=== PATIENT | female | born 1995 | race Hispanic/Latino ===

== ENCOUNTER → 2017-04-22 | Outpatient (REF) | payer OTHER ==
[2017-04-22 16:05] LABS: PROLACTIN 10.2 NG/ML
== END ==
LOC: M LABDRAW1 15:24 → M LAB REF 15:24
PROVIDERS: ATTEND Nurse Practitioner Family
DX: E28.2 Polycystic ovarian syndrome (principal)

== ENCOUNTER 2017-09-13 12:53 | Emergency (ER) | payer OTHER ==
[2017-09-13 13:35] LABS: BASO % 0.2 % (0.0-1.0); EOS # 0.3 10^3/uL (0.0-0.50); EOS % 3.3 % (0.0-3.0); HEMOGLOBIN 12.5 g/dl (12.0-15.5); IMMATURE GRANULOCYTE % 0.2 % (0-3.0); LYMPH # 2.9 10^3/uL (1.5-6.5); LYMPH % 29.7 % (24.0-44.0); MEAN CORPUSCULAR HEMOGLOBIN 29.2 pg (27.0-33.0); MEAN CORPUSCULAR HGB CONC 32.9 g/dl (32.0-36.5); MEAN CORPUSCULAR VOLUME 88.8 fl (80.0-96.0); MONO # 0.5 10^3/uL (0.0-0.8); NEUTROPHILS % 61.6 % (36.0-66.0); PLATELET COUNT, AUTOMATED 447 10^3/uL (150-450); RED BLOOD COUNT 4.28 10^6/uL (4.00-5.40); RED CELL DISTRIBUTION WIDTH 14.4 % (11.5-14.5); WHITE BLOOD COUNT 9.8 10^3/uL (4.0-10.0)
[2017-09-13 13:58] LABS: HCG, SERUM QUANTITATIVE 21 MIU/ML
[2017-09-13 15:30] LABS: KETONE, URINE AUTO RFX NEGATIVE (NEGATIVE); LEUKOCYTE ESTERASE UR AUTO RFX NEGATIVE (NEGATIVE); NITRITE, URINE AUTO RFX NEGATIVE (NEGATIVE); RBC, URINE AUTO RFX 7 /HPF (0-3); SPECIFIC GRAVITY UR AUTO RFX 1.013 (1.002-1.035); SQUAM EPITHELIAL CELL UR AURFX 0 /HPF (0-6); WBC, URINE AUTO RFX 2 /HPF (0-3)
[2017-09-13 15:37] LABS: CHLAMYDIA DNA AMPLIFICATION NEGATIVE (NEGATIVE); GC DNA AMPLIFICATION NEGATIVE (NEGATIVE)
== END 2017-09-13 15:54 | disposition home or self-care (01) ==
LOC: M ED 12:53
DX: O20.0 Threatened abortion (principal); Z3A.01 Less than 8 weeks gestation of pregnancy
CPT/HCPCS: 76801

== ENCOUNTER → 2017-09-15 | Outpatient (CLI) | payer OTHER ==
[2017-09-15 16:02] LABS: HCG, SERUM QUANTITATIVE 3 MIU/ML
== END ==
LOC: M LAB 14:55
DX: O20.0 Threatened abortion (principal); Z3A.00 Weeks of gestation of pregnancy not specified
CPT/HCPCS: 84702

== ENCOUNTER → 2017-09-23 | Outpatient (CLI) | payer OTHER ==
[2017-09-23 15:40] LABS: HCG, SERUM QUANTITATIVE < 1.0 MIU/ML
== END ==
LOC: M LAB 14:48
DX: O03.9 Complete or unspecified spontaneous abortion without complication (principal)
CPT/HCPCS: 84702

== ENCOUNTER → 2017-11-12 | Outpatient (REF) | payer OTHER ==
[2017-11-12 13:55] LABS: PROLACTIN 18.3 NG/ML
[2017-11-12 14:09] LABS: FREE T4 1.05 NG/DL (0.76-1.46)
[2017-11-12 15:09] LABS: CONTROL LINE HCG INT CTR LINE PRESENT; HCG, SERUM QUALITATIVE POSITIVE (NEGATIVE)
== END ==
LOC: M LABDRAW1 12:04
DX: N91.2 Amenorrhea, unspecified (principal); E23.6 Other disorders of pituitary gland
CPT/HCPCS: 84146

== ENCOUNTER 2017-12-17 21:21 | Emergency (ER) | payer OTHER ==
[2017-12-17 22:26] LABS: BASO % 0.2 % (0.0-1.0); EOS # 0.2 10^3/uL (0.0-0.50); EOS % 1.8 % (0.0-3.0); HEMATOCRIT 36.7 % (36.0-47.0); HEMOGLOBIN 12.1 g/dl (12.0-15.5); IMMATURE GRANULOCYTE % 0.2 % (0-3.0); LYMPH # 3.6 10^3/uL (1.5-6.5); LYMPH % 28.7 % (24.0-44.0); MEAN CORPUSCULAR HEMOGLOBIN 29.7 pg (27.0-33.0); MEAN CORPUSCULAR VOLUME 90.2 fl (80.0-96.0); MONO # 0.7 10^3/uL (0.0-0.8); MONO % 5.3 % (0.0-5.0); NEUTROPHILS # 8.1 10^3/uL (1.8-7.7); NEUTROPHILS % 63.8 % (36.0-66.0); PLATELET COUNT, AUTOMATED 381 10^3/uL (150-450); RED BLOOD COUNT 4.07 10^6/uL (4.00-5.40); WHITE BLOOD COUNT 12.7 10^3/uL (4.0-10.0)
[2017-12-17 22:42] LABS: KETONE, URINE AUTO RFX 2+ mg/dL (NEGATIVE); LEUKOCYTE ESTERASE UR AUTO RFX NEGATIVE (NEGATIVE); MUCUS, URINE RFX SMALL (NEGATIVE); NITRITE, URINE AUTO RFX NEGATIVE (NEGATIVE); RBC, URINE AUTO RFX 2 /HPF (0-3); SQUAM EPITHELIAL CELL UR AURFX 1 /HPF (0-6); WBC, URINE AUTO RFX 3 /HPF (0-3)
[2017-12-17 23:09] LABS: HCG, SERUM QUANTITATIVE 75171 MIU/ML
== END 2017-12-18 01:06 | disposition home or self-care (01) ==
LOC: M ED 21:21
DX: O20.0 Threatened abortion (principal); Z3A.08 8 weeks gestation of pregnancy; Z79.899 Other long term (current) drug therapy
CPT/HCPCS: 76801

== ENCOUNTER 2018-07-07 22:56 | Outpatient (CLI) | payer OTHER ==
[~2018-07-07] VITALS: Ht 160 cm; Wt 78.3 kg
[~2018-07-07 22:56] MED LIST: PRENMIS3 PO
[2018-07-08 00:04] VITALS: BP 127/82
--- NOTE | 2018-07-08 08:36 | HPE ---
DATE OF ADMISSION: 07/07/2018 HISTORY: A 23-year-old 2, para 0, abortio 1, last menstrual period (LMP) of 10/15/2017, estimated date of confinement (EDC) 07/22/2018 at 37 at 6 weeks of gestation was at work at [employer] and had contractions. No vaginal loss or bleeding, came in for evaluation. RISK FACTORS: Polycystic kidney disease. She was on metformin. Has recurrent urinary tract infections (UTIs) last was Escherichia coli (E. coli). PAST HISTORY: October 2017 spontaneous at 7 weeks. LABORATORIES: A+, human immunodeficiency virus (HIV) negative, hepatitis negative, RPR negative, rubella immune. Varicella immune. Pap normal. Urine was positive for E-coli. Gonorrhea and chlamydia are negative. One-hour glucose 124. Group B Streptococcus (GBS) is pending. EXAMINATION: On examination no distress. Symphysis fundus height is 38. Category 1 strip. One cm posterior -3 station, 50% effaced. No vaginal bleeding or loss, temperature is 99.6, respirations are 16, pulse 81, blood pressure 127/82. Urine is 1020, pH 5 negative. The rest the examination is unremarkable. Normocephalic, atraumatic. Neck: Full range of motion. Pupils equal and reactive to light. Distal pulses symmetric. No evidence of deep vein thrombosis (DVT), pulmonary embolism (PE) or superficial phlebitis. Chest is clear bilaterally in the bases. No wheezes or rhonchi. Abdomen: Soft. Uterus appropriate symphysis fundus height. Four quadrant bowel sounds and pelvic exam as mentioned. No rashes, lesions or pruritus. No arthralgia, myalgia. No joint pain. No complaints of cough, wheezes, shortness of breath or dyspnea on exertion. She has no constipation or diarrhea. No evidence of bleeding. Neuro complete. FAMILY HISTORY: Family history is noncontributory. PAST MEDICAL HISTORY: She had polycystic kidney disease and was on metformin otherwise everything else was within normal limits. SUMMARY: We have a 37 and 6 weeks of gestation was working at [employer], dehydrated, had a category 1 strip with no change in her cervix. Planned on discharge with instructions. Has an appointment tomorrow with her centering group and psychology instructor. The patient was discharged undelivered.
== END 2018-07-08 | disposition home or self-care (01) ==
LOC: M LDO 22:56
PROVIDERS: ATTEND Obstetrics & Gynecology
DX: O62.2 Other uterine inertia (principal); O99.283 Endocrine, nutritional and metabolic diseases complicating pregnancy, third trimester; E86.0 Dehydration; Z3A.37 37 weeks gestation of pregnancy
CPT/HCPCS: 59025; G0378; G0463

== ENCOUNTER 2018-07-11 00:26 | Outpatient (CLI) | payer OTHER ==
[~2018-07-11] VITALS: Ht 160 cm; Wt 80.7 kg
[2018-07-11 00:45] VITALS: BP 157/94
[2018-07-11 00:46] VITALS: BP 145/86
== END 2018-07-11 01:15 | disposition home or self-care (01) ==
LOC: M LDO 00:26
PROVIDERS: ATTEND Obstetrics & Gynecology
DX: O47.1 False labor at or after 37 completed weeks of gestation (principal); Z3A.38 38 weeks gestation of pregnancy
CPT/HCPCS: 59025; G0378; G0463

== ENCOUNTER 2018-07-14 08:55 | Inpatient (IN) | payer OTHER ==
[~2018-07-14] VITALS: Ht 160 cm; Wt 80.6 kg
[2018-07-14] VITALS (35 sets, daily range): BP systolic 122–173; BP diastolic 69–102
[2018-07-14 10:43] LABS: HEMATOCRIT 31.7 % (36.0-47.0); MEAN CORPUSCULAR HEMOGLOBIN 27.8 pg (27.0-33.0); MEAN CORPUSCULAR HGB CONC 31.5 g/dl (32.0-36.5); MEAN CORPUSCULAR VOLUME 88.1 fl (80.0-96.0); PLATELET COUNT, AUTOMATED 333 10^3/uL (150-450); WHITE BLOOD COUNT 9.2 10^3/uL (4.0-10.0)
[2018-07-14 11:05] LABS: ALBUMIN 2.4 GM/DL (3.2-5.2); ALT/SGPT 12 U/L (12-78); BILIRUBIN,TOTAL 0.2 MG/DL (0.2-1.0); BLOOD UREA NITROGEN 8 MG/DL (7-18); CALCIUM LEVEL 8.4 MG/DL (8.5-10.1); CARBON DIOXIDE LEVEL 23 MEQ/L (21-32); CHLORIDE LEVEL 109 MEQ/L (98-107); CREATININE FOR GFR 0.54 MG/DL (0.55-1.30); GLOMERULAR FILTRATION RATE > 60.0 (>60); GLUCOSE, FASTING 97 MG/DL (70-100); POTASSIUM SERUM 4.3 MEQ/L (3.5-5.1); SODIUM LEVEL 139 MEQ/L (136-145); TOTAL PROTEIN 6.3 GM/DL (6.4-8.2)
[2018-07-14 11:13] LABS: TOTAL PROTEIN,RANDOM URINE 228.6 MG/DL (0.0-12.0)
[2018-07-14] MEDS ORDERED: LACTATED RINGER'S 1000 ML IV STA (11:40)
[2018-07-14] MEDS ORDERED: miSOPROStol 50 MCG 1/2 TAB (S0191) PO SCH (12:00)
--- NOTE | 2018-07-14 12:37 | HPEPDOC ---
Obstetrical History & Physical General Date of Admission Jul 14, 2018 at 11:37 History of Present Illness Niya is a 23yo with SIUP at 38w6d by lmp c/w 7wk u/s who presented to L&D from clinic today where she was found to have elevated bp's for the first time at routine visit. She denies CROUCH/vision changes/RUQ pain. No complaints. No LOF/vaginal bleeding/painful ctx. She feels movement. Labs were drawn in triage which showed normal creatinine/LFTs/plt (anemic H/H 10/31.7) and urine protein:creatinine elevated at 1.02. Her bp's are consistently mild range. This meets criteria for pre-eclampsia withOUT severe features so we are proceeding with IOL since she is 38w6d. Chief Complaint: Pre-eclamsia Information Provided By: Patient Care Care: Good Care Dating Final EDC: Jul 22, 2018 Final EDC by: LMP, 1st trimester (US) Antepartum Course Diagnos(e)s pre-eclampsia withOUT severe features, UTI first trimester treated with macrobid, heartburn treated with zantac Height (inches): 63 Pre- weight (lbs.): 150 Admission Weight (lbs.): 174 Change in Weight (lbs.): 24 Past Medical History Past Obstetrical History : Past Obstetrical History: Primgravida (history of 1 early October 2017) LAB AID History: No pertinent history Past Medical History Medical History PCOS, overweight (starting BMI 27) Surgical History: Denies/None Family History Significant Family History: No pertinent family hx Social History Marital Status: Family situation: Spouse/partner home Psychosocial History: No pertinent psych hx * Smoker: non-smoker Alcohol: Denies Drugs: denies Imunizations Tdap status: current Influenza Status: current Allergies Coded Allergies: No Known Allergies (Unverified , 09/13/17) Medications Scheduled Multivitamins/ ( Multivitamin + D 28-0.8 & 200 mg) 1 Mis Mis, 1 TAB PO DAILY Physical Examination Physical Examination GENERAL: Alert and oriented times three. ABDOMEN: Gravid and non-tender to touch. FETUS: Is vertex (VTX) by sterile vaginal examination (SVE) EXTREMITIES: No edema. Vital Signs/I&O Vital Signs Date Time Temp Pulse Resp B/P (MAP) Pulse Ox O2 Delivery O2 Flow Rate FiO2 07/14/18 11:12 73 18 143/94 (110) 07/14/18 09:47 99.2 Laboratory Data 24H LABS Laboratory Tests 2 07/14/18 10:19: Nucleated Red Blood Cells % (auto) 0.0, Anion Gap 7L, Glomerular Filtration Rate > 60.0, Blood Urea Nitrogen 8, Creatinine 0.54L, Sodium Level 139, Potassium Level 4.3, Chloride Level 109H, Carbon Dioxide Level 23, Calcium Level 8.4L, Aspartate Amino Transf (AST/SGOT) 16, Alanine Aminotransferase (ALT/SGPT) 12, Alkaline Phosphatase 176H, Total Bilirubin 0.2, Total Protein 6.3L, Albumin 2.4L, Albumin/Globulin Ratio 0.62L 07/14/18 10:26: Urine Random Creatinine 224.0, Urine Random Total Protein 228.6H CBC/BMP Laboratory Tests 07/14/18 10:19 Red Blood Count 3.60 L, Mean Corpuscular Volume 88.1, Mean Corpuscular Hemoglobin 27.8, Mean Corpuscular Hemoglobin Concent 31.5 L, Red Cell Distribution Width 14.2, Calcium Level 8.4 L, Aspartate Amino Transf (AST/SGOT) 16, Alanine Aminotransferase (ALT/SGPT) 12, Alkaline Phosphatase 176 H, Total Bilirubin 0.2, Total Protein 6.3 L, Albumin 2.4 L Pertinent Laboratoy Data Blood Type: A+ RBC Antibody Screen: Negative HIV: Negative Hepatitis B: Negative Hepatitis C: Unknown Rapid Plasma Reagin: Nonreactive Rubella: Immune Varicella: Immune Chlamydia/Gonorrhea: Negative Group B Streptococcus: Negative Cystic Fibrosis: Negative Glucose Tolerance Test: 124 Anatomy Ultrasound Ultrasound Date: Jan 13, 2018 Placenta Location: Posterior Normal Anatomy: Yes (EIF) Placenta Previa: No Steroid Therapy Steroid Therapy: No Vaginal Examination Dilation: 3 cm Effacement: 70% Station: -2 Cervical Consistency: Soft Cervical Position: Anterior Presentation: Cephalic presentation Assessment Variability: Moderate Accelerations: Positive Decelerations: None Tocometer Contractions: Yes Frequency: irregular, greater than 9 min/apart Duration: greater than 60 seconds Strength: palpated as mild Assessment/Plan Assessment Niya is a 23yo with SIUP at 38w6d by lmp c/w 7wk u/s admitted to L&D f or IOL for new diagnosis of pre-eclampsia withOUT severe features based on mild range bp's with protein:creatinine 1.02. No other sx of pre-E, LFTs/creatinine/plt wnl. Anemia noted on H/H. PMhx significant for overweight starting BMI 27, course significant for GERD treated with zantac and a UTI treated with macrobid. GBS negative. Cat I FHRT, occasional ctx. SCE /- 2, soft. Cephalic by SCE. Plan Admit and orient. Splitting Machine Feeder and consent. Diet: regular diet lunch then clear liquids Group B Streptococcus (GBS) negative Labs and intravenous (IV) per unit protocol. Counseled on cytotec, pitocin and induction of labor (IOL). Will start with 50mcg PO cytotec x1 then likely proceed to pitocin. Lactated Ringers (LR): Bolus 500 mL, then at 125 mL/hr. Anticipate normal spontaneous delivery () Candidate for epidural if desired MD Froilan Emmanuel Katrina D MD Jul 14, 2018 11:52
[2018-07-14] MEDS: OXYTOCIN DRIP 30 UNITS in APPROPRIATE DILUENT 1 EA IV SCH ×2 (17:16→18:03)
[2018-07-14] MEDS: LR 1,000 ML IV SCH ×2 (18:43→23:22)
[2018-07-14] MEDS ORDERED: FENTANYL 2MCG/ML ROPIVACAINE 0.2% IN 0.9% NACL 100ML IVBAG As Ordered ONE (21:31)
[2018-07-14 21:50] LABS: HEMATOCRIT 33.3 % (36.0-47.0); HEMOGLOBIN 10.5 g/dl (12.0-15.5); MEAN CORPUSCULAR HEMOGLOBIN 27.6 pg (27.0-33.0); MEAN CORPUSCULAR HGB CONC 31.5 g/dl (32.0-36.5); MEAN CORPUSCULAR VOLUME 87.4 fl (80.0-96.0); PLATELET COUNT, AUTOMATED 359 10^3/uL (150-450); RED BLOOD COUNT 3.81 10^6/uL (4.00-5.40); WHITE BLOOD COUNT 11.7 10^3/uL (4.0-10.0)
[2018-07-14] MEDS ORDERED: ePHEDrine SULFATE 25 MG/5 ML(5MG/ML) SYRINGE IV PRN (22:15)
[2018-07-14] MEDS ORDERED: diphenhydrAMINE INJ 50MG/ML VIAL (J1200) IV PRN (22:15)
[2018-07-14] MEDS ORDERED: LACTATED RINGER'S 1000 ML IV PRN (22:15)
[2018-07-14] MEDS ORDERED: REFRIGERATOR IV KEYS XX PRN (22:15)
[2018-07-14] MEDS ORDERED: EPIDURAL/PCA KEYS XX PRN (22:15)
[2018-07-14] MEDS ORDERED: NALOXONE INJ 0.4 MG/1 ML VIAL (J2310) IV PRN (22:15)
[2018-07-14] MEDS ORDERED: EPIDURAL COMMENT XX SCH (22:15)
[2018-07-14] MEDS ORDERED: FENTANYL/ROPIVACAINE/NACL BAG 100 ML EPIDURAL SCH (22:15)
[2018-07-14] MEDS ORDERED: ONDANSETRON 4MG/2ML VIAL (J2405) IV PRN (22:15)
[2018-07-15] VITALS (12 sets, daily range): BP systolic 120–149; BP diastolic 69–85
--- NOTE | 2018-07-15 01:32 | IPNPDOC ---
Text Note Date of Service The patient was seen on 07/15/18. NOTE Intrapartum Note Pt overall comfortable with epidural, feeling pressure with ctx. Pitocin recently turned down from 16mu to 10mu. Vitals wnl, afebrile Cat II FHRT with occasional variable decels, mod pauline, +accels [place]: ctx q2min SCE C/C/0, pushes well with test push Continue pushing Anticipate soon Safe to proceed Dr. Stephanie Mcgovern MD VS,Dakota, I+O VS, Dakota I+O Laboratory Tests 07/14/18 10:19 Red Blood Count 3.60 L, Mean Corpuscular Volume 88.1, Mean Corpuscular Hemoglobin 27.8, Mean Corpuscular Hemoglobin Concent 31.5 L, Red Cell Distribution Width 14.2, Calcium Level 8.4 L, Aspartate Amino Transf (AST/SGOT) 16, Alanine Aminotransferase (ALT/SGPT) 12, Alkaline Phosphatase 176 H, Total Bilirubin 0.2, Total Protein 6.3 L, Albumin 2.4 L 07/14/18 21:33 Red Blood Count 3.81 L, Mean Corpuscular Volume 87.4, Mean Corpuscular Hemoglobin 27.6, Mean Corpuscular Hemoglobin Concent 31.5 L, Red Cell Distribution Width 14.2 Vital Signs Date Time Temp Pulse Resp B/P (MAP) Pulse Ox O2 Delivery O2 Flow Rate FiO2 07/14/18 22:36 71 18 138/85 (102) 07/14/18 20:00 98.7 I&O- Last 24 Hours up to 6 AM 07/15/18 06:00 Intake Total 1000 ml Output Total 150 ml Balance 850 ml Stephanie Mcgovern MD Jul 15, 2018 01:32
[2018-07-15] MEDS ORDERED: OXYTOCIN DRIP 30 UNITS in APPROPRIATE DILUENT 1 EA IV SCH (02:19)
--- NOTE | 2018-07-15 02:26 | DNPDOC ---
[facility] Delivery Note Delivery Note DATE OF DELIVERY: 07/15/18 PREDELIVERY DIAGNOSIS: 39w0d IOL for pre-eclampsia withOUT severe features POST DELIVERY DIAGNOSIS: Delivered. PROCEDURE: Spontaneous vaginal delivery METAL BED ASSEMBLER: Dr. Stephanie Mcgovern MD ANESTHESIA: epidural ESTIMATED BLOOD LOSS: 300 mL. FINDINGS: male infant (weight pending at time of this note, see chart), Score 9/9 DELIVERY SUMMARY: Niya is a 23yo [id number] s/p uncomplicated at 39w0d after undergoing IOL for pre-eclampsia withOUT severe features, delivering on 07/15/18 at 01:54. She received oral cytotec and then IV pitocin. Received an epidural. Unknown time of AROM- hair palpated at C/C/0 but no fluid ever noticed. She pushed approximately 30 min. head delivered OA, restituted LAITH, left compound hand noted. Right anterior shoulder delivered followed by posterior shoulder and corpus. vigorous with spontaneous cry, placed on maternal abdomen, apgars 9/9. After 3 min, cord clamped x2 and cut by FOB. With uterine massage and traction on the cord, placenta delivered spontaneously and intact with 3 vessel centrally inserted cord. Bimanual uterine massage performed, IV pitocin given per protocol. Uterus then firm at u-2cm. Inspection of perineum and vagina revealed a 1mll inside the vagina and bilateral labial lacerations, all reapproximated in routine fashion with 3-0 vicryl with total hemostasis noted. Mom and were doing well when I left the room. MD Froilan Emmanuel Katrina D MD Jul 15, 2018 02:26
[2018-07-15] MEDS ORDERED: ACETAMINOPHEN 500 MG TAB PO PRN (02:30)
[2018-07-15] MEDS ORDERED: DOCUSATE SODIUM 100 MG CAP PO PRN (02:30)
[2018-07-15] MEDS ORDERED: RHOGAM 300 MCG (1500 IU) INJ (J2790) IM SCH (02:30)
[2018-07-15] MEDS ORDERED: MEASLES,MUMPS,RUBELLA VACCINE INJ (MMR-II) (90707) SC SCH (02:30)
[2018-07-15] MEDS: IBUPROFEN 800 MG TAB PO PRN ×2 (04:57→13:43)
[2018-07-15] MEDS: PRENATAL VITAMINS CHEWABLE TABLET PO SCH (08:49)
--- NOTE | 2018-07-15 12:25 | IPN ---
DATE: 07/15/2018 The patient requested circumcision of her male . After discussing risks and benefits of circumcision, the medical and nonmedical indications, penile block and aftercare, expressed understanding of penile block, aftercare and bleeding. Signed the consent form. 20-minute discussion. All questions were answered. We await clearance by the acquisition advisor.
[2018-07-15] MEDS: DIBUCAINE 1% OINTMENT 30GM TOP PRN (13:43)
--- NOTE | 2018-07-16 05:55 | IPNPDOC ---
Text Note Date of Service The patient was seen on 07/16/18. NOTE PPD1 States feeling well, pain controlled with prescribed meds. Baby bonding and feeding well. No heavy VB. Lochia slowing. Ambulatory. Tolerating PO without issues. Voiding spont. No CP/LP/SOB. VSSAF other than Hr 127 at 0600 NAD A&O LE no C/C/E Ut at U-2, firm a/p: Doing well. Cont routine care. D/C tomorrow likely. Rpt Vitals in 1 hour. Sessions Dakota LANZA, I+O VSDakota I+O Vital Signs Date Time Temp Pulse Resp B/P (MAP) Pulse Ox O2 Delivery O2 Flow Rate FiO2 07/15/18 18:00 97.9 87 18 133/74 (93) SESSIONS,ELMER Monique MD Jul 16, 2018 05:55
[2018-07-16 06:40] VITALS: BP 131/84
[2018-07-16] MEDS: PRENATAL VITAMINS CHEWABLE TABLET PO SCH (08:40)
[2018-07-16] MEDS: IBUPROFEN 800 MG TAB PO PRN ×2 (09:47→20:15)
[2018-07-16] MEDS: LR 1,000 ML IV SCH ×2 (15:51→15:52)
[2018-07-16 18:08] VITALS: BP 128/69
[2018-07-16] MEDS: DIBUCAINE 1% OINTMENT 30GM TOP PRN (20:15)
[2018-07-17 06:00] VITALS: BP_SYST 110; BP_SYST 130; BP_DIAS 75; BP_DIAS 92
[2018-07-17] MEDS ORDERED: IBUP-1114 PO (08:36)
[2018-07-17] MEDS ORDERED: MAPA500T2 PO (08:36)
[2018-07-17] MEDS ORDERED: NUPE1OIN2 TOP (08:37)
[2018-07-17] MEDS ORDERED: COLA100C5 PO (08:37)
[2018-07-17] MEDS: PRENATAL VITAMINS CHEWABLE TABLET PO SCH (09:00)
--- NOTE | 2018-07-17 15:38 | DSES ---
DATE OF ADMISSION: 07/14/2018 DATE OF DISCHARGE: 07/17/2018 A 23-year-old 2, now para 1 admitted for elevated blood pressure and induction of labor. Her protein creatinine ratio is 1.02. She had a spontaneous vaginal delivery with epidural in place of a live male infant, 7 pounds, 4 ounces, scores of 9 and 9 at one and five minutes respectively. Her admitting hemoglobin was 10.0, hematocrit 31.7, platelets 142. Discharge day one hemoglobin 10.5, hematocrit 33.3 and platelets were 142. DISCHARGE VITAL SIGNS: Her blood pressure 130/75, respirations 20, pulse 83 and temperature is 96.8. We discussed phlebitis, cystitis, mastitis, endometritis and cellulitis, diet, exercise, pain management, perineal, breast and wound care. Medications were dispensed at discharge. The rest the examination is unremarkable. Normocephalic, atraumatic. Neck: Full range of motion. Pupils equal and reactive to light. Distal pulses are symmetric. No evidence of deep vein thrombosis (DVT), pulmonary embolism (PE) or superficial phlebitis. Lungs are clear bilaterally to bases. No wheezes or rhonchi. No costovertebral angle (CVA) tenderness. Uterus 2 below. Lochia is moderate. Four quadrant bowel sounds are noted. Perineum is intact. No rashes, lesions or pruritus. No arthralgia or myalgia. No complaint joint pain. No complaint of cough, wheezes, shortness of breath or dyspnea on exertion. No bleeding. Neurologically complete. No incontinence, urgency or frequency. No nausea, vomiting, diarrhea or constipation. No diabetic issues. She does not smoke, drink or abuse drugs. She is . No domestic violence and has a good support system. SUMMARY: We have a term gestation, early, delivered by induction of labor because of elevated blood pressures, live male infant.
== END 2018-07-17 11:55 | disposition home or self-care (01) | DRG 806 ==
LOC: M LDO 08:55 → M LDI 11:37 → M OBS 07-15 04:31
PROVIDERS: ADMIT Obstetrics & Gynecology; ATTEND Obstetrics & Gynecology
PROC: 3E033VJ Introduction of Other Hormone into Peripheral Vein, Percutaneous Approach (ICD-10-PCS; 2018-07-14)
PROC: 10E0XZZ Delivery of Products of Conception, External Approach (ICD-10-PCS; principal; 2018-07-15)
PROC: 0HQ9XZZ Repair Perineum Skin, External Approach (ICD-10-PCS; 2018-07-15)
PROC: 10907ZC Drainage of Amniotic Fluid, Therapeutic from Products of Conception, Via Natural or Artificial Opening (ICD-10-PCS; 2018-07-15)
DX: O14.94 Unspecified pre-eclampsia, complicating childbirth (principal); N39.0 Urinary tract infection, site not specified; Z37.0 Single live birth; Z3A.38 38 weeks gestation of pregnancy; K21.9 Gastro-esophageal reflux disease without esophagitis; O99.62 Diseases of the digestive system complicating childbirth; O23.43 Unspecified infection of urinary tract in pregnancy, third trimester; O32.6XX0 Maternal care for compound presentation, not applicable or unspecified; O70.0 First degree perineal laceration during delivery

== ENCOUNTER 2020-10-22 16:42 | Emergency (ER) | payer OTHER ==
[~2020-10-22] VITALS: Ht 160 cm; Wt 79.1 kg
[~2020-10-22 16:42] MED LIST changes: +COLA100C5 PO; +IBUP-1114 PO; +MAPA500T2 PO; +NUPE1OIN2 TOP
[2020-10-22] MEDS ORDERED: CETI10CH PO (17:03)
[2020-10-22] MEDS ORDERED: FLUT44IN INH (17:03)
[2020-10-22] MEDS ORDERED: ASPI81CH33 PO (17:03)
[2020-10-22 19:59] LABS: BASO % 0.3 % (0.0-1.0); EOS # 0.7 10^3/uL (0.0-0.5); EOS % 5.9 % (0.0-3.0); HEMATOCRIT 35.6 % (36.0-47.0); HEMOGLOBIN 11.8 g/dl (12.0-15.5); LYMPH % 24.7 % (24.0-44.0); MEAN CORPUSCULAR HEMOGLOBIN 29.9 pg (27.0-33.0); MEAN CORPUSCULAR HGB CONC 33.1 g/dl (32.0-36.5); MEAN CORPUSCULAR VOLUME 90.1 fl (80.0-96.0); MONO # 0.6 10^3/uL (0.0-0.8); MONO % 5.3 % (2.0-8.0); NEUTROPHILS # 7.6 10^3/uL (1.5-8.5); NEUTROPHILS % 63.5 % (36.0-66.0); PLATELET COUNT, AUTOMATED 360 10^3/uL (150-450); RED BLOOD COUNT 3.95 10^6/uL (4.00-5.40)
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
[2020-10-22 20:35] VITALS: BP 120/74
== END 2020-10-22 20:38 | disposition home or self-care (01) ==
LOC: M ED 16:42
DX: O9A.213 Injury, poisoning and certain other consequences of external causes complicating pregnancy, third trimester (principal); S30.1XXA Contusion of abdominal wall, initial encounter; V49.40XA Driver injured in collision with unspecified motor vehicles in traffic accident, initial encounter; Y92.9 Unspecified place or not applicable; Y93.9 Activity, unspecified; Y99.9 Unspecified external cause status; Z3A.15 15 weeks gestation of pregnancy

== ENCOUNTER 2021-02-18 00:08 | Outpatient (CLI) | payer OTHER ==
[~2021-02-18] VITALS: Ht 160 cm; Wt 85.1 kg
[~2021-02-18 00:08] MED LIST changes: +ASPI81CH33 PO; +CETI10CH PO; +FLUT44IN INH
[2021-02-18 00:38] LABS: HEMOGLOBIN 11.3 g/dl (12.0-15.5); MEAN CORPUSCULAR HEMOGLOBIN 30.3 pg (27.0-33.0); MEAN CORPUSCULAR HGB CONC 33.2 g/dl (32.0-36.5); MEAN CORPUSCULAR VOLUME 91.2 fl (80.0-96.0); PLATELET COUNT, AUTOMATED 352 10^3/uL (150-450); RED BLOOD COUNT 3.73 10^6/uL (4.00-5.40); WHITE BLOOD COUNT 10.7 10^3/uL (4.0-10.0)
[2021-02-18 00:47] VITALS: BP 125/74
[2021-02-18 01:06] LABS: ALT/SGPT 14 U/L (12-78); BILIRUBIN,TOTAL 0.2 MG/DL (0.2-1.0); CREATININE FOR GFR 0.55 MG/DL (0.55-1.30); GLOMERULAR FILTRATION RATE > 60.0 (>60); LDH LACTATE DEHYDROGENASE 132 U/L (84-246)
[2021-02-18 01:32] LABS: TOTAL PROTEIN,RANDOM URINE 12.1 MG/DL (0.0-12.0)
--- NOTE | 2021-02-18 01:37 | IPNPDOC ---
Text Note Date of Service The patient was seen on 02/18/21. NOTE Chief Complaint: Ms. Izquierdo is a 25 year old G 2 P 1 at 31+4 weeks gestation presenting to L&D triage for complaints of elevated blood pressure with vision changes. Patient presents: alone HPI: Reports she has had blurred vision today and checked her blood pressure at home with a wrist cuff and was 158/97 at 2300. Reports she felt dizzy earlier on Friday and had a headache that went away with Tylenol. Also reporting swelling to hands and feet, but improved with rest. Does report sharp pain under left breast that hurts worse with touching, like muscles tearing on skin. Denies any leaking of fluid, vaginal bleeding. Reporting good movement. Denies any contractions. Denies any headaches, nausea, vomiting, RUQ pain. Denies any dysuria, vaginal discharge, vaginal itching/burning. Has hx of pre-e in previous and taking ASA 81mg daily. Objective: VS: BP 125/74, P96 & BP 117/72, P94 General: Alert. Well-appearing, in no acute distress PSYCH: Well groomed. Appropriate affect, normal mood. Conversed easily. Neuro: Oriented to time, place, and person. Patellar Deep tendon reflexes normal. Negative clonus. RESP: Lungs clear to auscultation bilaterally without wheezes, rales or rhonchi. Unlabored breathing. Thoracic expansion symmetric. No retractions. CV: Normal RRR, no murmur, c/w normal . No edema to bilateral upper and lower extremities. ABD: Soft, non-tender. BS normal x4 quad. No swelling, guarding, mass or lumps noted on palpation. MSK: Legs without edema bilaterally. Normal mvmt all extremities. Steady gait. Kirti from a seated position without assistance. Obstetrical: FHR: 135 with moderate variability. Multiple accelerations noted, no decelerations. No contractions noted. VTX by Kati Hernandez present for exam: L&D RN Labs: Item Value Date Time Urine Random Creatinine 55.0 MG/DL 02/18/21 0056 Urine Random Total Protein 12.1 MG/DL H 02/18/21 0056 Creatinine 0.55 MG/DL 02/18/21 0029 Glomerular Filtration Rate > 60.0 02/18/21 0029 Uric Acid 3.0 MG/DL 02/18/2128 Total Bilirubin 0.2 MG/DL 02/18/2128 Aspartate Amino Transf (AST/SGOT) 11 U/L 02/18/2128 Alanine Aminotransferase (ALT/SGPT) 14 U/L 02/18/2128 Lactate Dehydrogenase 132 U/L 02/18/2128 White Blood Count 10.7 10^3/uL H 02/18/2128 Red Blood Count 3.73 10^6/uL L 02/18/2128 Hemoglobin 11.3 g/dl L 02/18/2128 Hematocrit 34.0 % L 02/18/2128 Mean Corpuscular Hemoglobin Concent 33.2 g/dl 02/18/2128 Red Cell Distribution Width 13.2 % 02/18/2128 Platelet Count 352 10^3/uL 02/18/2128 Nucleated Red Blood Cells % (auto) 0.0 % 02/18/2128 Mean Corpuscular Hemoglobin 30.3 pg 02/18/2128 Mean Corpuscular Volume 91.2 fl 02/18/2128 A/P 25yo at 31+4 wks gestation evaluated in L&D triage for complaints of elevated BP at home. VSS and normal Benign physical exam Reactive NST, reassuring Labs: Normal with P:C 0.22 Plan: Discussed sometimes wrist cuffs are not as accurate, however we will check her blood pressure again at her appointment on Friday. Educated on routine OB return precautions and warning signs. Follow up on [facility] as previously scheduled. VS,Dakota, I+O VS, [place], I+O Laboratory Tests 02/18/21 00:29 RICHARD PAEZ CNM Feb 18, 2021 00:49
== END 2021-02-18 01:45 | disposition home or self-care (01) ==
LOC: M LDO 00:08
PROVIDERS: ATTEND Advanced Practice Midwife
DX: Z03.79 Encounter for other suspected maternal and fetal conditions ruled out (principal); Z3A.31 31 weeks gestation of pregnancy; Z87.59 Personal history of other complications of pregnancy, childbirth and the puerperium
CPT/HCPCS: 36415; 59025; 82247; 82565; 82570; 83615; 84156; 84450; 84460; 84550; 85027; G0378; G0463

== ENCOUNTER 2021-03-11 21:51 | Outpatient (CLI) | payer OTHER ==
[~2021-03-11] VITALS: Ht 160 cm; Wt 85.5 kg
[2021-03-11 22:12] VITALS: BP 129/80
--- NOTE | 2021-03-11 23:08 | IPNPDOC ---
Text Note Date of Service The patient was seen on 03/11/21. NOTE Chief Complaint: Ms. Izquierdo is a 25 year old G 2 P 1 at 34+4 weeks gestation presenting to L&D triage for complaints of leaking fluid. Patient presents: alone HPI: Reports she felt leaking fluid yesterday, but didn't think much about it. [place] fluid again at 2100 this evening with pantiliner becoming wet and having to change it. No odor or color. No recent intercourse. Reports irregular uterine cramping. Some nausea today. Denies vaginal bleeding. Reporting good movement. Denies any headaches, vomiting, RUQ pain. Denies any dysuria, vaginal discharge, vaginal itching/burning. Objective: VS: BP 129/80, HR 98, Temp 97.6 General: Alert. Well-appearing, in no acute distress PSYCH: Well groomed. Appropriate affect, normal mood. Conversed easily. Neuro: Oriented to time, place, and person. RESP: Unlabored breathing. CV: No edema to bilateral upper and lower extremities. No cyanosis ABD: Soft, non-tender. Obstetrical: FHR: 135 with moderate variblity. Accelerations present. No decelerations. 2 contractions noted while in triage. Pelvic exam: External Genitalia showed no abnormalities, without lesions; normal vulva with NO vulvar atrophy, hypertrophy, stricture, adhesions, ulcers, lesions, masses, or vulvitis. Vagina: Normal white, nonadherent vaginal discharge was observed. Normal mucosa with good rugae. No ulcerations, masses, lesions or lacerations. No unusual odors. Cervix: Normal cervical mucoid discharge noted, no lesions, no CMT on speculum insertion. Non-friable. Cervical os visually closed. No pooling of fluid. Negative fluid on valsalva. Uterus: Not tender. Appropriate size for gestational age. Deaf Interpreter present for exam: Mr. Marin, RN Limited Trans-Abdominal Ultrasound Performed Today: Presentation: BREECH Placenta location: right anterior Movement Present Heart Rate Present Amniotic fluid: MVP 5.6cm Labs: negative nitrazine on vaginal fluid and negative for ferning. A/P 25yo at 34+4 wks gestation evaluated in L&D triage for complaints of leaking fluid. VSS and normal Benign physical exam. Negative for fern and nitrazine. Cervix visually closed. Reactive NST, reassuring TAUS showing: BREECH presentation with normal fluid. Not ruptured at this tie. Plan: Educated on routine OB return precautions and warning signs. Reviewed continuing to monitor for fluid loss. Follow up on [facility] clinic as previously scheduled. Recommended f/u US in clinic at her next appointment to re-assess presentation. VS,Fishbone, I+O VS, [place], I+O Vital Signs Date Time Temp Pulse Resp B/P (MAP) Pulse Ox O2 Delivery O2 Flow Rate FiO2 03/11/21 22:12 97.6 98 18 129/80 (96) RICHARD PAEZ CNM Mar 11, 2021 23:08
== END 2021-03-11 23:04 | disposition home or self-care (01) ==
LOC: M LDO 21:51
PROVIDERS: ATTEND Advanced Practice Midwife
DX: O26.893 Other specified pregnancy related conditions, third trimester (principal); O32.1XX0 Maternal care for breech presentation, not applicable or unspecified; Z3A.34 34 weeks gestation of pregnancy
CPT/HCPCS: 59025; G0378; G0463

== ENCOUNTER 2021-03-19 18:32 | Outpatient (CLI) | payer OTHER ==
[~2021-03-19] VITALS: Ht 160 cm; Wt 85.3 kg
[2021-03-19 18:54] VITALS: BP 120/74
[2021-03-19 19:10] VITALS: BP 122/62
[2021-03-19] MEDS ORDERED: ACET-907 PO (19:14)
[2021-03-19] MEDS ORDERED: FIORICET TAB PO ONE (19:15)
[2021-03-19 19:25] VITALS: BP 124/74
[2021-03-19 19:40] VITALS: BP 120/69
[2021-03-19 19:52] LABS: CREATININE,RANDOM URINE 24.6 MG/DL; TOTAL PROTEIN,RANDOM URINE 7.1 MG/DL (0.0-12.0)
[2021-03-19 19:55] VITALS: BP 117/67
[2021-03-19 20:08] LABS: ALT/SGPT 16 U/L (12-78); BILIRUBIN,TOTAL 0.1 MG/DL (0.2-1.0); CREATININE FOR GFR 0.55 MG/DL (0.55-1.30); GLOMERULAR FILTRATION RATE > 60.0 (>60); LDH LACTATE DEHYDROGENASE 141 U/L (84-246); URIC ACID 3.2 MG/DL (2.6-6.0)
[2021-03-19 20:10] VITALS: BP 115/66
--- NOTE | 2021-03-19 20:23 | IPNPDOC ---
Text Note Date of Service The patient was seen on 03/19/21. NOTE 25 yo at 35+5 weeks gestation presented to L&D with the complaint of a headache for the past several hours and an elevated BP reading on her home cuff. she has a history of pre E in her first . She denies any visual changes, RUQ pain, or SOB. She also denies any vaginal bleeding, contractions, or leakage of fluid. She endorses regular movement. Vitals - VSS, afebrile, normotensive, non tachycardic General - AAOX3, sitting up in bed, pleasant and conversant, NAD Abdomen - Gravid uterus appropriate size for gestational age. No fundal tenderness Extremities - No edema FHR tracing - Cat I with moderate variability, +accels, no decels. Labs: Urine pr:cr - 0.288 AST/ALT - 1416 Cr - 0.55 BP normal. Headache improved significantly after administration of fioricet. Lab work unremarkable. No evidence of toxemia or hypertensive disease of . Reassuring status. Patient discharged home with return precautions. All questions answered. 30 minutes [place] Patel, I+O VS, [place], I+O Laboratory Tests 03/19/21 19:33 Vital Signs Date Time Temp Pulse Resp B/P (MAP) Pulse Ox O2 Delivery O2 Flow Rate FiO2 03/19/21 20:10 99.7 109 18 115/66 (82) SANKET STOUT DO Mar 19, 2021 20:23
== END 2021-03-19 20:25 | disposition home or self-care (01) ==
LOC: M LDO 18:32
PROVIDERS: ATTEND Obstetrics & Gynecology
DX: O26.893 Other specified pregnancy related conditions, third trimester (principal); R51.9 Headache, unspecified; Z3A.35 35 weeks gestation of pregnancy
CPT/HCPCS: 36415; 59025; 82247; 82565; 82570; 83615; 84156; 84450; 84460; 84550; G0378; G0463

== ENCOUNTER 2021-04-02 10:34 | Outpatient (CLI) | payer OTHER ==
[~2021-04-02] VITALS: Ht 160 cm; Wt 85.6 kg
[~2021-04-02 10:34] MED LIST changes: +ACET-907 PO
[2021-04-02 10:55] VITALS: BP 133/76
[2021-04-02 13:51] VITALS: BP 123/79
[2021-04-02 14:58] VITALS: BP 130/79
[2021-04-02] MEDS ORDERED: TERBUTALINE SULFATE 1 MG/ML VIAL (J3105) As Ordered ONE (15:12)
[2021-04-02] MEDS ORDERED: TERBUTALINE SULFATE 1 MG/ML VIAL (J3105) SC ONE (15:15)
[2021-04-02 15:53] VITALS: BP 134/76
== END 2021-04-02 15:40 | disposition home or self-care (01) ==
LOC: M LDO 10:34
PROVIDERS: ATTEND Obstetrics & Gynecology
DX: O32.1XX0 Maternal care for breech presentation, not applicable or unspecified (principal); Z3A.37 37 weeks gestation of pregnancy
CPT/HCPCS: 59025; 59412; 76815; G0378; G0463; J3105

== ENCOUNTER 2021-04-11 07:30 | Inpatient (IN) | payer OTHER ==
[2021-04-11] VITALS (7 sets, daily range): BP systolic 114–128; BP diastolic 63–75
[~2021-04-11] VITALS: Ht 160 cm; Wt 86.7 kg
[2021-04-11] MEDS ORDERED: HOME MED LIST COMPLETE! XX SCH (07:50)
--- OUTSIDE RECORDS SUMMARY | 2021-04-11 07:50 | CCD ---
Author Author [facility] Organization [facility] Address Unknown Phone Unavailable Support Name Relationship Address Phone SHANA ALLAN Next Of Kin [address] [place] [address] UE Next Of Kin Unknown Unavailable SKH* Next Of Kin [address] [place] [address] SMC* Next Of Kin [address] [place] [address] CASTILLO GARNER Next Of Kin [id number] [place] [address] Phu GARNER Next Of Kin [address] [place] [address] CASTILLO GARNER ECON [address] [place] [address] Unavailable Re-disclosure Warning The records that you are about to access may contain information from federally-assisted alcohol or drug abuse programs. If such information is present, then the following federally mandated warning applies: This information has been disclosed to you from records protected by federal confidentiality rules (42 CFR part 2). The federal rules prohibit you from making any further disclosure of this information unless further disclosure is expressly permitted by the written consent of the person to whom it pertains or as otherwise permitted by 42 CFR part 2. A general authorization for the release of medical or other information is NOT sufficient for this purpose. The Federal rules restrict any use of the information to criminally investigate or prosecute any alcohol or drug abuse patient.The records that you are about to access may contain highly sensitive health information, the redisclosure of which is protected by Article 27-F of the [facility] Public Health law. If you continue you may have access to information: Regarding HIV / AIDS; Provided by facilities licensed or operated by the [facility] Office of Mental Health; or Provided by the [facility] Office for People With Developmental Disabilities. If such information is present, then the following [facility] mandated warning applies: This information has been disclosed to you from confidential records which are protected by state law. State law prohibits you from making any further disclosure of this information without the specific written consent of the person to whom it pertains, or as otherwise permitted by law. Any unauthorized further disclosure in violation of state law may result in a fine or long-term sentence or both. A general authorization for the release of medical or other information is NOT sufficient authorization for further disc losure. Family History Family Member Name Family Member Gender Family Member Status Date o f Status Description Data Source(s) Unknown Male Problem [facility] ([facility]) Medications No Information Insurance Providers Payer name Policy type / Coverage type Policy ID Covered green party ID Covered green party's relationship to cruz Policy Cruz Plan Information [facility] [id number] [facility] [id number] [facility] NO FAULT [id number] SP [id number] [facility] Retrieve Service Commercial [id number] Family Dependent [id number] [facility] Retrieve Service Commercial [id number] Family Dependent [id number] [facility] [id number] 2 [id number] [facility] O [id number] S [id number] [facility] Referrals Commercial [id number] Self [id number] [facility] Medigap Part B [id number] Family Dependent [id number] [facility] [id number] Problems, Conditions, and Diagnoses No Information Surgeries/Procedures No Information Results No Information Social History No Information
[2021-04-11] MEDS ORDERED: LACTATED RINGER'S 1000 ML IV STA (08:11)
[2021-04-11] MEDS ORDERED: BICITRA 30ML SOLN UDC PO ONE (08:15)
[2021-04-11] MEDS: LR 1,000 ML IV SCH ×2 (08:15→17:55)
[2021-04-11] MEDS ORDERED: ceFAZolin SOD 2 GM in IV 1 EA IV ONE (08:15)
[2021-04-11 09:12] LABS: HEMATOCRIT 38.9 % (36.0-47.0); HEMOGLOBIN 12.6 g/dl (12.0-15.5); MEAN CORPUSCULAR HEMOGLOBIN 29.8 pg (27.0-33.0); MEAN CORPUSCULAR HGB CONC 32.4 g/dl (32.0-36.5); PLATELET COUNT, AUTOMATED 366 10^3/uL (150-450); RED BLOOD COUNT 4.23 10^6/uL (4.00-5.40); WHITE BLOOD COUNT 10.6 10^3/uL (4.0-10.0)
[2021-04-11] MEDS ORDERED: ONDANSETRON 4MG/2ML VIAL As Ordered ONE (10:45)
[2021-04-11] MEDS ORDERED: dexameTHASONE 4 MG/ML 1ML VIAL (J1100 PER 1MG) As Ordered ONE (10:45)
[2021-04-11] MEDS ORDERED: OXYTOCIN INJ 10 UNITS/ML VIAL (J2590) As Ordered ONE (10:45)
[2021-04-11] MEDS ORDERED: KETOROLAC 60MG 2ML VIAL As Ordered ONE (10:45)
[2021-04-11] MEDS ORDERED: fentaNYL 100 MCG/2 ML INJECTION (J3010) As Ordered ONE (10:45)
[2021-04-11] MEDS ORDERED: MORPHINE PRES-FREE INJ 10 MG/10 ML VIAL (J2274) As Ordered ONE (10:46)
[2021-04-11] MEDS ORDERED: NALOXONE INJ 0.4MG/1ML VIAL (J2310 PER 1MG) IV PRN ×2 (11:10)
[2021-04-11] MEDS ORDERED: ONDANSETRON 4MG/2ML VIAL IV PRN ×2 (11:10→12:45)
[2021-04-11] MEDS ORDERED: diphenhydrAMINE 50MG/ML VIAL (J1200) IV PRN (11:10)
[2021-04-11] MEDS ORDERED: NALBUPHINE HCL 10 MG/ML AMP (J2300) IV PRN (11:10)
[2021-04-11] MEDS ORDERED: METOCLOPRAMIDE INJ 10MG/2ML VIAL (J2765 PER 1) IV PRN (11:10)
[2021-04-11] MEDS ORDERED: ePHEDrine SULFATE 25 MG/5 ML(5MG/ML) SYRINGE As Ordered ONE (11:24)
[2021-04-11] MEDS ORDERED: oxyCODONE 5MG TAB PO PRN ×3 (12:40→12:45)
[2021-04-11] MEDS ORDERED: RHOGAM 300 MCG (1500 IU) INJ (J2790) IM SCH (12:40)
[2021-04-11] MEDS ORDERED: MEASLES,MUMPS,RUBELLA VACCINE INJ (MMR-II) (90707) SC SCH (12:40)
[2021-04-11] MEDS ORDERED: MOM 30ML SUSPENSION UDC PO PRN (12:40)
[2021-04-11] MEDS ORDERED: OXYTOCIN DRIP 30 UNITS in IV 1 EA IV SCH (12:40)
[2021-04-11] MEDS ORDERED: fentaNYL 100 MCG/2 ML INJECTION (J3010) IV PRN (12:45)
--- NOTE | 2021-04-11 13:09 | ROOPDOC ---
[facility] Report Of Operation Report of Operation DATE OF PROCEDURE: 04/11/21 PREPROCEDURE DIAGNOSES: BREECH Presentation, satisfied parity POSTPROCEDURE DIAGNOSES: same as above PROCEDURE PERFORMED: PLCD and Bilateral tubal ligation SURGEON: Francesca Dickinson MD [place] LAW CLERK: Edison Jimenez ANESTHESIA: epidural ESTIMATED BLOOD LOSS: Approximately 500mL. COMPLICATIONS: None REMARKS: 2g Ancef given FINDINGS: fetus found breech and delivered, normal uterus, ovaries and fallopian tubes. SPECIMENS REMOVED: placenta, bilateral fallopian tube segment PROCEDURE NOTE: pfannestiel incision, low transverse uterine incision, delivery of female breech apgars of 9/9, wt 3390g.7LB8oz. hysterotomy closed with 0-monocryl in layers, janet placed on the hysterotomy, bilateral tubal ligation performed without issues. peritoneum closed. fascia closed with 0-vicryl running locking. subc closed with 2-0 vicryl. skin closed with 3-o monocryl on a cornelius needle. DESCRIPTION OF PROCEDURE: . The patient was taken to the operating room where epidural anesthesia was found to be adequate. She was then prepped and draped in the normal sterile fashion in the dorsal supine position with a leftward tilt. A Pfannenstiel skin incision was then made with the scalpel and carried through to the underlying layer of fascia. The fascia was incised in the midline and the incision extended laterally with the curved Pabon scissors. The superior aspect of the fascial incision was then grasped with the Shantal clamps, elevated, and the underlying rectus muscles dissected off bluntly with the scalpel used in the midline. Attention was then turned to the inferior aspect of this incision which, in a similar fashion, was grasped, tented up with Kocker clamps, and the rectus muscles dissected off bluntly. The rectus muscles were then in the midline, and the peritoneum identified and entered bluntly. The peritoneal opening was additionally extended superiorly and laterally by manual traction with good visualization of the bladder. the Mobius retractor was then inserted and a bladder flap was created. The lower uterine segment incised in a transverse fashion with the scalpel. The uterine incision was then bluntly extended caudally and cephalad with manual traction and the infants buttocks delivered followed by legs using the pinard maneuver, followed by the body and arms again using the loveset then peunard respectively. moriceau- smellie veit maneuver was then used to deliver the head. The cord was clamped and cut and handed to awaiting pediatricians. The placenta was then removed with gentle traction. The uterus was exteriorized and cleared of all clots and debris. The uterine incision was closed with 0- Monocryl in a running locked fashion. A second imbricating layer with 0- Monocryl was placed with excellent hemostasis. An additional [id number]-[id number]-[id number] suture using 0-vicryl was placed at the lateral right aspects of hysterotomy for additional hemostasis. janet was then placed on the hysterotomy for continued serosal oozing. Normal uterus, ovaries and tubes were noted. Bilateral tubal ligation was then perfomed using the parkland method without issues. the uterus was returned into the abdomen and the retractor was removed. The gutters were cleared of all clots and the hysterotomy closure was inspected with excellent hemostasis noted again. The fascia was closed with 0-vicryl in a running fashion. The suprafascial area was irrigated and the skin was closed with 3-0 quill monoderm suture. optiforam dressing was applied. The patient tolerated the procedure well. Sponge, lap and needle counts were correct times two. The patient was taken to the recovery room in stable condition. ENZO ADAN MD Apr 11, 2021 13:09
[2021-04-11] MEDS ORDERED: OXYTOCIN 30 UNITS IN 0.9% NaCl 500ML IV BAG (J2590) As Ordered ONE (13:48)
[2021-04-11] MEDS: KETOROLAC 30 MG/ML 1ML VIAL IV SCH (17:55)
[2021-04-11] MEDS: DOCUSATE SODIUM 100MG CAPSULE PO SCH (21:20)
[2021-04-11] MEDS: SIMETHICONE 80MG CHEW TAB PO PRN (21:21)
[2021-04-12] VITALS (7 sets, daily range): BP systolic 102–132; BP diastolic 55–80
[2021-04-12] MEDS: KETOROLAC 30 MG/ML 1ML VIAL IV SCH ×2 (00:25→05:53)
[2021-04-12] MEDS: LR 1,000 ML IV SCH ×2 (00:45→08:15)
--- NOTE | 2021-04-12 06:58 | IPNPDOC ---
Progress Note Date of Service: Apr 12, 2021 Day#: 1 Progress Note SUBJECT: CHASE is a 26 yo POD1 S/P PLTCD AND BTL for breech presentation and satisfied parity. she delivered a female breech apgars of 9/9, wt 3390g.7LB8oz. she is doing well this morning. She has been ambulating, voiding spontaneously without issue and tolerating regular diet. Breast feeding without issue. Reports lochia is like a normal period. OBJECTIVE: VITAL SIGNS: Within normal limits, afebrile. Alert and oriented times three. normal work of breathing Heart rate: Regular rate and rhythm Abdomen: Fundus firm at U-2. Soft, NTTP. ASSESSMENT: : CHASE is a 26 yo POD1 S/P PLTCD AND BTL for breech presentation and satisfied parity. she delivered a female infant breech apgars of 9/9, wt 3390g.7LB8oz. she is doing well this morning. hemodynamically stable. Vitals within normal limits, afebrile, hemodynamically stable with no evidence of infection, pre e or infection H/H this morning still pending, EBL was 500ml PLAN: 1. Discharge to home tomorrow. 2. Oxycodone, Tylenol and Motrin for pain. 3. Encourage breast feeding and ambulation. 4. s/p BTL for contraception 5. Routine PP visit in 6 weeks in clinic. 6. Discussed return precautions at length. VS, I&O, 24H, Fishbone Vital Signs/I&O Vital Signs Date Time Temp Pulse Resp B/P (MAP) Pulse Ox O2 Delivery O2 Flow Rate FiO2 04/12/21 06:00 97.5 85 18 115/61 (79) 99 Room Air I&O- Last 24 Hours up to 6 AM 04/12/21 06:00 Intake Total 1650 ml Output Total 1300 ml Balance 350 ml Laboratory Data 24H LABS Laboratory Tests 2 04/11/21 08:51: Nucleated Red Blood Cells % (auto) 0.0, Syphilis Serology NONREACTIVE CBC/BMP Laboratory Tests 04/11/21 08:51 ENZO ADAN MD Apr 12, 2021 06:54
[2021-04-12 08:22] LABS: HEMATOCRIT 30.7 % (36.0-47.0); MEAN CORPUSCULAR HEMOGLOBIN 30.6 pg (27.0-33.0); MEAN CORPUSCULAR HGB CONC 32.9 g/dl (32.0-36.5); PLATELET COUNT, AUTOMATED 282 10^3/uL (150-450); WHITE BLOOD COUNT 11.5 10^3/uL (4.0-10.0)
[2021-04-12 08:29] LABS: HEMOGLOBIN 10.1 g/dl (12.0-15.5)
[2021-04-12] MEDS: PRENATAL VITAMINS CHEWABLE TABLET PO SCH (09:24)
[2021-04-12] MEDS: DOCUSATE SODIUM 100MG CAPSULE PO SCH ×2 (09:24→20:43)
[2021-04-12] MEDS: ACETAMINOPHEN 500 MG TAB PO PRN ×2 (09:25→20:52)
[2021-04-12] MEDS ORDERED: ONDANSETRON 4MG/2ML VIAL IV PRN (11:10)
[2021-04-12] MEDS: IBUPROFEN 800 MG TAB PO SCH ×2 (14:02→22:19)
[2021-04-12] MEDS: SIMETHICONE 80MG CHEW TAB PO PRN (20:51)
[2021-04-13 02:00] VITALS: BP 112/62
[2021-04-13] MEDS: IBUPROFEN 800 MG TAB PO SCH (05:50)
[2021-04-13 06:00] VITALS: BP 113/70
--- NOTE | 2021-04-13 06:27 | IPNPDOC ---
Progress Note Date of Service: Apr 13, 2021 Day#: 2 Progress Note Ms. Izquierdo is a 26 yo on postoperative day 2 after for Breech presentation. S: States she is doing well. Reports pain well controlled. She is ambulating well, tolerating a regular diet, urinating without difficulty, reports normal bowel activities and has no breast or leg pain. States is going well. Did supplement with formula. Lochia is diminishing. Denies dizziness, lightheadedness. O: VS: Vital Signs Label Value Date Time Patient Temperature 97.7 degrees F 04/13/21599 Temperature Source Temporal 04/13/21 06 Pulse 77 04/13/21 0600 Respiratory Rate 18 bpm 04/13/21 06 Blood Pressure Assessment 113/70 (84) 04/13/21 06 Source Automatic Cuff (NIBP) Bedside Pulse Oximetry 97 % 04/13/21599 General: Alert. Well-appearing, in no acute distress. PSYCH: Well groomed. Appropriate affect, normal mood. Conversed easily. Neuro: Oriented to time, place, and person. RESP: Lungs clear to auscultation bilaterally without wheezes, rales or rhonchi. Unlabored breathing. CV: Normal RRR, no murmur, c/w normal . No edema to bilateral upper and lower extremities. Negative calf tenderness. Breast: Soft, filling. No erythema or tenderness. Intact nipples. ABD: Soft, non-tender. BS normal x4 quad. Fundus: Firm U-2, Fundus non-tender. MSK: legs without calf tenderness or edema bilaterally SKIN: Dry, intact. Abdomen with surgical scar- 2 1cm areas of drainage on dressing, marked. Opifoam. A/P 26yo day 2 s/p A positive Normal progression with formula supplementation VSS BTL completed for control after discharge. Discharge today when ready, to follow up in [facility] clinic in 2wks for incision check with 6-8wks for PP visit. Discharge teaching completed with patient, see discharge summary. VS, I&O, 24H, Fishbone Vital Signs/I&O Vital Signs Date Time Temp Pulse Resp B/P (MAP) Pulse Ox O2 Delivery O2 Flow Rate FiO2 04/13/21 06:00 97.7 77 18 113/70 (84) 97 Room Air Laboratory Data 24H LABS Laboratory Tests 2 04/12/21 08:04: Nucleated Red Blood Cells % (auto) 0.0 CBC/BMP Laboratory Tests 04/12/21 08:04 RICHARD PAEZ CNM Apr 13, 2021 06:27
--- NOTE | 2021-04-13 06:30 | DS.PDOC ---
Discharge Summary General Date of Admission Apr 11, 2021 at 07:30 Date of Discharge Apr 13, 2021 Discharge Summary Date of Admission: 04/11/21 Admission Diagnosis: Scheduled Delivery Date: 04/11/21 Discharge Diagnosis: Breech Presentation Delivery Khoury gestation, live Procedures: Low Transverse for Breech Bilateral tubal ligation, complete Condition on Discharge: Stable Discharged to: Home Hospital Course: Ms. Izquierdo is a 26 year old G 2 now P 2 who delivered a viable infant female via low transverse , scheduled for breech presentation. She has had an uncomplicated course. She has remained afebrile and normotensive with diminishing lochia throughout her stay. She is ambulating well, tolerating a regular diet, urinating without difficulty, reports normal bowel activities and has no breast or leg pain. She is stable and ready for discharge. Day of discharge physical exam documented in progress note. feeding at discharge is breastmilk and formula. Tubal ligation was completed for control. To follow up in the [facility] clinic in 2wks and 6-8 weeks. Discharge management time Spent: <30 minutes I saw and evaluated the patient, and completed the documentation personally. -MAJ Loraine Paez CNM Vital Signs/I&Os Vital Signs Date Time Temp Pulse Resp B/P (MAP) Pulse Ox O2 Delivery O2 Flow Rate FiO2 04/13/21 06:00 97.7 77 18 113/70 (84) 97 Room Air Laboratory Data Labs 24H Laboratory Tests 2 04/12/21 08:04: Nucleated Red Blood Cells % (auto) 0.0 CBC/BMP Laboratory Tests 04/12/21 08:04 Discharge Medications Scheduled Aspirin (Aspirin) 81 Mg Tab.chew, 1 TAB PO DAILY for pain, (Reported) Fluticasone Propionate (Flovent Hfa) 44 Mcg/Act Aer.w.adap, 2 PUFF INH DAILY, (Reported) 95/Iron Fum/Folic/Dha ( + Dha Combo Pack) 1 Mis Mis, 1 TAB PO DAILY, (Reported) Allergies Coded Allergies: SEASONAL ALLERGIES (Verified Allergy, Unknown, 04/06/21) LORAINE PAEZ CNM Apr 13, 2021 06:30
[2021-04-13] MEDS: SIMETHICONE 80MG CHEW TAB PO PRN (10:28)
[2021-04-13] MEDS: DOCUSATE SODIUM 100MG CAPSULE PO SCH (10:31)
[2021-04-13] MEDS: PRENATAL VITAMINS CHEWABLE TABLET PO SCH (10:32)
== END 2021-04-13 13:00 | disposition home or self-care (01) | DRG 785 ==
LOC: M LDI 07:30 → M OBS 14:09
PROVIDERS: ADMIT Obstetrics & Gynecology; ATTEND Obstetrics & Gynecology
PROC: 0UB70ZZ Excision of Bilateral Fallopian Tubes, Open Approach (ICD-10-PCS; 2021-04-11)
PROC: 10D00Z1 Extraction of Products of Conception, Low, Open Approach (ICD-10-PCS; principal; 2021-04-11 10:30)
DX: O32.1XX0 Maternal care for breech presentation, not applicable or unspecified (principal); Z3A.39 39 weeks gestation of pregnancy; Z37.0 Single live birth; Z30.2 Encounter for sterilization